=== PATIENT | female | born 1945 | race Caucasian/White ===

== ENCOUNTER → 2017-10-13 12:56 | Outpatient (CLI) | payer MEDICAID, MEDICARE, SELFPAY ==
--- NOTE | 2017-10-14 07:38 | PFT ---
INTRODUCTION: The patient is a 72-year-old female that presents for pulmonary function testing secondary to a diagnosis of shortness of breath. Respiratory therapy reports good patient effort. Bronchodilators were used during testing. INTERPRETATION: Forced expiration spirometry demonstrates no evidence of a large airways obstructive ventilatory defect, based upon ATS criteria. There was no significant response to aerosolized bronchodilators. However, there was a rather robust mid flow bronchodilator response. Spirograms are of good quality do not plateau indicating slow emptying of the lungs. The respiratory flow volume loop reveals decreased expiratory flow rates, primarily at high lung volumes consistent with small airways obstruction. Body plethysmography was performed and reveals an elevated RV to 148% of predicted. Diffusing capacity by single breath CO is moderately reduced at 55% of predicted. IMPRESSION: While these pulmonary function tests show no evidence of a large airways obstructive ventilatory defect, based upon ATS criteria, there was stigmata of small airways obstruction with brisk mid flow bronchodilator response and evidence of air trapping. Diffusing capacity is moderately reduced, which could indicate a possible underlying pulmonary vascular disorder such as pulmonary hypertension. Consideration can be given to obtaining an echocardiogram, if clinically indicated. There are no previous pulmonary function studies available for comparison.
== END ==
PROVIDERS: Family Provider Nurse Practitioner Family; Visit Provider Internal Medicine Critical Care Medicine
DX: R06.02 Shortness of breath (principal); F17.201 Nicotine dependence, unspecified, in remission
CPT/HCPCS: 94060; 94726; 94729